=== PATIENT | male | born 1980 | race Caucasian/White ===

== ENCOUNTER → 2018-10-01 | Outpatient (CLI) | payer BC, MEDICAID, SELFPAY ==
--- NOTE | 2018-10-01 14:46 | RAD_ITS ---
STUDY: X-RAY - CERVICAL SPINE REASON FOR EXAM: Male, 38 years old. TECHNIQUE: view(s) of the cervical spine were obtained. COMPARISON: None FINDINGS: Normal anterior atlantoaxial articulation. Normal odontoid process. There is mild straightening of the cervical lordosis Normal vertebral bodies and endplates. Normal disc space heights. Normal visualized intervertebral neuroforamina. The air column is quite patent. The prevertebral space is unremarkable. No cervical rib noted. RAD/Cerv Spine 4 or 5 Views IMPRESSION: Normal x-ray examination of the visualized cervical spine. Electronically Signed: Jordin Vasquez, at 8:32 EDT Tel , Service support ,
== END | disposition home or self-care (01) ==
LOC: HPRAD 14:45
PROVIDERS: Referring Provider Orthopaedic Surgery; Visit Provider Orthopaedic Surgery
DX: R20.0 Anesthesia of skin (principal); R20.2 Paresthesia of skin
CPT/HCPCS: 72050

== ENCOUNTER → 2018-10-23 | Outpatient (CLI) | payer BC, SELFPAY ==
--- NOTE | 2018-10-23 15:23 | NEURO ---
NCS and/or EMG Patient Report Ordering Doctor: Becky Grant DATE OF SERVICE: 10/23/18 Latrell Perry is a 38-year-old male presents for electrodiagnostic testing of the upper limbs. He reports progressively worsening numbness pain and tingling in both hands. Electrodiagnostic findings: Median motor nerve demonstrates normal distal latency, amplitude and conduction velocity bilaterally. Normal ulnar motor response bilaterally, including conduction across the elbow. Normal median and ulnar F waves. Prolonged median sensory latency at the wrist is noted bilaterally. On needle EMG, all muscles tested in the upper limb showed no evidence of denervation with normal motor unit action potentials. Electrodiagnostic impression this is an abnormal study in the upper limbs 1. Electrodiagnostic findings demonstrate bilateral median mononeuropathy. This is consistent with a mild bilateral carpal tunnel syndrome. If there are any further questions, please do not hesitate to contact me.
== END | disposition home or self-care (01) ==
LOC: PSN 14:24
PROVIDERS: Referring Provider Orthopaedic Surgery; Visit Provider Orthopaedic Surgery
DX: G56.03 Carpal tunnel syndrome, bilateral upper limbs (principal)
CPT/HCPCS: 95886; 95912

== ENCOUNTER 2018-10-30 10:16 | Day surgery (SDC) | payer BC, MEDICAID, SELFPAY ==
--- NOTE | 2018-10-01 03:09 | HP_ITS ---
I have re-examined the patient. There are no clinical changes since date of exam. Intake Intake Visit Reasons: B/L HANDS Medications buprenorphine 8 mg-naloxone 2 mg sublingual tablet SUBLINGUAL #39 tab 10/01/18 [History Confirmed 10/01/18] HPI B/L HANDS: Surgical H&P: Yes Details: Parts of this documentation were recorded by a scribe, this documentation accurately reflects the service provided and the decisions made by me, Becky Grant, DO 10/01/18 1087. JAZZMINE MEZA is a 38 year old M new patient here today for BL hands/wrists. Patient reports that his shoulders and and elbows also have numbness. Denies any hx of neck pain or injury. States the numbness is worse at night. denies any x-rays of his hands. States he had an EMG study about 5 years ago in [place] which showed severe carpal tunnel of the right and moderate of the left. States his right hand pain and numbness is the worst. Patient reports weakness of BL hands. States he doesn't have any difficulty dropping things. Denies any night bracing. Denies any injections. States he did take tramadol in the past which was effective temporarily. ROS Const Reports system reviewed and no additional complaints, except as docu Eyes Reports system reviewed and no additional complaints, except as docu ENT Reports system reviewed and no additional complaints, except as docu Card Reports system reviewed and no additional complaints, except as docu Resp Reports system reviewed and no additional complaints, except as docu GI Reports system reviewed and no additional complaints, except as docu Reports system reviewed and no additional complaints, except as docu Musc Reports as per HPI Skin/Breast Reports system reviewed and no additional complaints, except as docu Neuro Yes system reviewed and no additional complaints, except as docu Psych Reports system reviewed and no additional complaints, except as docu Endo Reports system reviewed and no additional complaints, except as docu Dieter/Lymph Reports system reviewed and no additional complaints, except as docu Aller/Immun Reports system reviewed and no additional complaints, except as docu Ortho Exam Right Wrist/Hand Contralateral Normal: No A1 alissa trigger: No Right Wrist: Yes ROM-Extension 0-60, ROM-Flexion 0-80, ROM-Pronation 0-80, ROM- Supination 0-90 and Durken's Test Motor: EPL: 5, FDP-2: 4, 1st Dorsal Interosseous: 5, APB: 5 Sensation: Radial: I, Ulnar: I, Median: D Left Wrist/Hand Contralateral Normal: No A1 alissa trigger: No Left Wrist: Yes ROM-Extension 0-60, Yes ROM-Flexion 0-80, Yes ROM-Pronation 0- 80, Yes ROM-Supination 0-90 and Yes Durken's Test Motor: EPL: 5, FDP-2: 5, 1st Dorsal Interosseous: 5, APB: 5 Sensation: Radial: I, Ulnar: I, Median: D Assessment & Plan Problems 1. Bilateral carpal tunnel syndrome G56.03 Plan Personally reviewed the patient's medical history, medications, surgeries and recent exams if available. X-rays were reviewed. There is no obvious fracture, dislocation, or lucency noted. Educated on the anatomy of the hands, wrist and innervation of the nerves. Explained that when there is already thenar atrophy as in the right hand the best option is release but we will need the EMG results from prior test before surgery. During surgery to release the right carpal tunnel we can inject the left. The purpose of surgery is to stop the progression. Follow up post op or sooner if pain, swelling, numbness or associated symptoms, or concerns develop. All questions answered. Patient in agreement of plan. Orders Orders: Cerv Spine 4 or 5 Views 10/01/18 R20.0, R20.2 Coding Level of Care Code Off vis,new,level 3 Diagnoses Bilateral carpal tunnel syndrome G56.03 10/03/18 1127 <Electronically signed by Becky hurtado DO> Date _ Becky Grant DO
[2018-10-30] VITALS (8 sets, daily range): BP systolic 125–156; BP diastolic 90–103; PULSE 51–62; RESP 16–18; TEMP 36.1–36.4; O2SAT 97–100; BMI 30.1
[2018-10-30] MEDS: Cefazolin 2 GM in 0.9% Normal Saline 100 ML IV (12:21)
[2018-10-30] MEDS: Bupivacaine 0.5% PF 10 ML VIAL (12:46)
[2018-10-30] MEDS: Triamcinolone Acetonide 40 MG/ML Vial (12:46)
[2018-10-30] MEDS: Mupirocin Ointment 22gm Tube 1 APPLIC (12:47)
--- NOTE | 2018-10-30 13:05 | DCINST_ITS ---
Discharge Diet: No Restrictions - Leave dressing intact, follow-up in 2 weeks for suture removal, call with concerns Discharge Activity: May Not Drive May shower in (days): 1 Ice area for (Minutes): 20 - Every hour while awake. Weight Bearing Status: Weight bearing as tolerated Keep extremity elevated above heart level: Operative Extremity Call your doctor if your incision/area has: Continuous Slow Oozing, Sudden Increased Bleeding, Increased Pain/ Swelling, Increased Redness, Foul Smelling Discharge Call your doctor if you observe: Fever of 101 or Higher, Coldness, Increased Pain, Numbness or Tingling, Change in Color, Calf discomfort Allergies/Adverse Reactions: Allergies No Known Allergies Allergy (Verified 10/29/18 08:11) Medications to take at Discharge buprenorphine 8 mg-naloxone 2 mg sublingual tablet 8 mg SUBLINGUAL DAILY #39 tab 10/01/18 Acetaminophen/Codeine #3 [Tylenol #3 Tablet] 1 - 2 tablet PO Q6H PRN PRN #15 tablet 10/30/18 The following prescriptions were given: Acetaminophen/Codeine #3 [Tylenol #3 Tablet] 1 - 2 tablet PO Q6H PRN PRN #15 tablet PRN Reason: Pain Transmission Status: Sent to [facility] Primary Care Physician: Care Physician,No Primary [Primary Care Provider] - Test Results: Test results from this visit will be discussed in further detail at your follow- up appointment, if applicable. Please Follow Up With: Becky Grant, - [phone]
--- NOTE | 2018-10-30 13:06 | OP.PCM_ITS ---
Report of Operation Date of Procedure: 10/30/18 Pre-Operative Diagnosis: bilateral carpal tunnel syndrome Post-Operative Diagnosis: same Surgery/Procedure Performed:: right carpal tunnel release, left carpal tunnel injection Type of Anesthesia:: Claus Kothari Anesthesiologist: Bry Bautista Fluids Replaced: 400ml lr Description of Procedure: Preoperative note Patient is a 38 year old patient with nerve conduction study confirming bilateral carpal tunnel syndrome. Patient failed conservative treatment for her carpal tunnel elected proceed with right carpal tunnel release left carpal tunnel injection. Risks benefits and alternatives surgery discussed with patient. Risks including but not limited to blood loss, blood clot, infection, neurovascular injury, failure procedure, loss of life and loss of limb. Patient is aware like proceed with right carpal tunnel release, left carpal tunnel injection. Operative note Patient seen and examined preoperative holding area. right hand was marked. History and physical and consent reviewed. Patient was brought to the operating room placed supine on the operating table. Sign in, anesthesia, antibiotics were administered. right upper extremity was prepped and draped after Claus block was initiated. All bony prominences well-padded SCDs placed on bilateral lower extremities. We marked out our incisions for our carpal tunnel release at the intersection of Osorio's line in the fourth ray flexed. We extended about a centimeter and a half. Timeout was performed. We then checked ensure that the Faith block was working with pickups which it was. We then used a 15 blade to make a skin incision. We then dissected down tenotomy syllable of the transverse carpal ligament. We then used a new 15 blade cut through the transverse carpal ligament down to the level of the median nerve. We then further released the median nerve the combination of the 15 blade and tenotomies. The nerve was grayish in color and adherent to the transverse carpal ligament volarly. We released the transverse carpal ligament distally to the fat pad and then proximally under standard technique. We then palpated to ensure that we released all of the transverse carpal ligament which we did. We irrigated the incision with copious amounts of sterile saline. All bleeders were coagulated. The incision was closed with interrupted 4-0 nylon stitches. Tourniquet was deflated for total working time of 11 minutes. Then under standard sterile technique we then injected the left carpal tunnel without complication. patient tolerated procedure well there were no complications. Patient transferred to recovery room in stable condition. Postoperative note Hospital pharmacy has prescription Leave dressing clean dry and intact Follow-up in 2 weeks Call with concerns This note was generated with [employer] dictation software. It may contain incorrect words, spelling, and punctuation that were not noted in checking the note before signing
== END 2018-10-30 14:44 | disposition home or self-care (01) ==
LOC: SDC 10:19 → AC 10:20
PROVIDERS: Referring Provider Orthopaedic Surgery; Visit Provider Orthopaedic Surgery
PROC: (CPT 64721; principal; 2018-10-30 12:45)
DX: G56.03 Carpal tunnel syndrome, bilateral upper limbs (principal)
CPT/HCPCS: 01810; 20526; 64721; J7120; A4216